=== PATIENT | female | born 1950 | race African-American/Black ===

== ENCOUNTER → 2024-01-07 | Day surgery (SDC) | payer MEDICAID, OTHER ==
[~2024-01-07] MED LIST: LIDOCAINE HCL/EPINEPHRINE 1%-EPI 1:100,000 20 ML VIAL ONE; SODIUM BICARBONATE 4% (2.4MEQ) 5ML VIAL IV ONE
== END | disposition home or self-care (01) ==
LOC: RAD 10:19
PROVIDERS: ATTEND Family Medicine
DX: D24.2 Benign neoplasm of left breast (principal); Z79.899 Other long term (current) drug therapy
CPT/HCPCS: 88305; 19083; J3490 ×2; Z7610 ×3; 19281